=== PATIENT | female | born 2005 | race Caucasian/White ===

== ENCOUNTER 2024-11-05 10:29 | Inpatient (IN) ==
[2024-11-05] MEDS ORDERED: Lidocaine 1% VIAL 10 MG/ML 30 ML VIAL ONE (10:55)
[2024-11-05] MEDS: Ondansetron ODT 4 mg TAB 4 MG TAB SL ONE (11:01)
[2024-11-05] MEDS: Lidocaine 1% VIAL 10 MG/ML 30 ML VIAL INJ ONE (11:04)
[2024-11-05 16:54] VITALS: BP 125/84
[2024-11-05] MEDS ORDERED: Al Hydrox/Mg Hydrox/Simet LIQ 30 ML UDC PO PRN (17:24)
[2024-11-05] MEDS ORDERED: Nicotine PATCH 21 MG/24 HR PATCH TRANSDERM PRN (17:40)
[2024-11-05] MEDS ORDERED: diphenhydraMINE PO* 50 MG Q8H PRN PO (17:40)
[2024-11-05] MEDS ORDERED: Nicotine GUM 4MG FRUIT FLAVOR PO PRN (18:00)
[2024-11-06 08:15] LABS: HDL Cholesterol 44.1 mg/dL
[2024-11-06] MEDS: Vitamin THERAPEUTIC TAB PO SCH (09:27)
== END 2024-11-06 13:39 | disposition home or self-care (01) | DRG 755 ==
LOC: ED 10:29 → EDHOLD 16:05 → BSU 16:11
PROVIDERS: ADMIT Psychiatry & Neurology Addiction Psychiatry; ATTEND Psychiatry & Neurology Psychiatry